=== PATIENT | male | born 1940 | race Asian ===

== ENCOUNTER 2017-04-17 09:19 | Emergency (ER) | payer OTHER ==
[~2017-04-17] VITALS: Ht 172.7 cm; Wt 69.9 kg
[2017-04-17] MEDS: EPINEPHRINE-PF 1:1000 1 MG/ML AMPUL IV ONE ×3 (09:40→09:50)
--- NOTE | 2017-04-17 09:50 | NUR ---
JOHANNA ORTEGA AT THE BEDSIDE PACKING THE LEFT NOSTRIL.
[2017-04-17] MEDS ORDERED: EPINEPHRINE 1 MG/1 ML AMP ONE ×3 (09:53→10:05)
--- NOTE | 2017-04-17 10:10 | NUR ---
CALLED DR CRUZ, DR SOUZA [employer]CH[employer]. PT'S FAMILY DECIEDED TO TAKE PT TO [facility]( [facility]). DR ROBERSON AWARE.
[2017-04-17 10:19] VITALS: BP 141/80
--- NOTE | 2017-04-17 10:20 | NUR ---
Patient discharged to home in stable conditon. Written and verbal after care instructions given. Patient verbalizes understanding of instructions.PT LEFT ER ACCOMAPINED BY FAMILY.
== END 2017-04-17 10:22 | disposition home or self-care (01) ==
LOC: ER 09:19
DX: R04.0 Epistaxis (principal); Z85.118 Personal history of other malignant neoplasm of bronchus and lung
CPT/HCPCS: 30901; 99284; A4663; J0171 ×2